=== PATIENT | female | born 1965 | race Caucasian/White ===

== ENCOUNTER → 2017-08-01 | Outpatient (CLI) | payer OTHER | END | disposition home or self-care (01) | LOC: US 12:28 | DX: C50.911 Malignant neoplasm of unspecified site of right female breast (principal); C77.3 Secondary and unspecified malignant neoplasm of axilla and upper limb lymph nodes | CPT/HCPCS: 19081; 19083; 19085; 38505; 76942; 77065; 88305; 88361; C1713 ==

== ENCOUNTER → 2017-08-22 | Day surgery (SDC) | payer OTHER ==
[~2017-08-22] MED LIST: DEXAMETHASONE SOD PHOS 20 MG/5 ML VIAL.; FAMOTIDINE 20 MG/2 ML VIAL; LIDOCAINE 1% 20 ML VIAL.; LIDOCAINE 1% PF 2 ML VIAL. ID; LIDOCAINE 2% PF Vial for OR 5 ML VIAL.; METOCLOPRAMIDE HCL 10 MG/2 ML VIAL.; MIDAZOLAM HCL/PF 2 MG/2 ML VIAL.; ONDANSETRON PF 4 MG/2 ML VIAL.; ONDANSETRON PF 4 MG/2 ML VIAL. IV; PROPOFOL 20 ML IV; PROTAMINE 50 MG/5 ML VIAL. IV; SCOPOLAMINE 1.5MG PATCH. TD; SEVOFLURANE 31 TO 60 MINUTES. IH; ceFAZolin 2GM PREMIX 2 GM/50 ML BAG IV; fentaNYL PF VIAL 100 MCG/2 ML VIAL; fentaNYL PF VIAL 100 MCG/2 ML VIAL IV
[2017-08-22] MEDS: IV RINGERS,LACTATED 1000ML 1,000 ML IV (11:27)
[2017-08-22] MEDS: SCOPOLAMINE 1.5MG PATCH. TD (11:51)
[2017-08-22] MEDS: HEPARIN SODIUM 5,000 UNIT in IV NORMAL SALINE 500ML BAG 500 ML IRR ×2 (12:40→13:11)
[2017-08-22] MEDS: fentaNYL PF VIAL 100 MCG/2 ML VIAL IV ×3 (14:12→14:34)
[2017-08-22] MEDS: PROCHLORPERAZINE 10 MG/2 ML VIAL. IV (14:43)
[2017-08-22] MEDS: HYDROcodone/APAP 5/325MG 1 TAB TABLET PO (15:02)
== END | disposition home or self-care (01) ==
LOC: SURG 11:02
DX: Z45.2 Encounter for adjustment and management of vascular access device (principal); C50.919 Malignant neoplasm of unspecified site of unspecified female breast; F41.9 Anxiety disorder, unspecified; F32.9 Major depressive disorder, single episode, unspecified; E78.00 Pure hypercholesterolemia, unspecified; Z98.51 Tubal ligation status; Z98.890 Other specified postprocedural states; Z79.899 Other long term (current) drug therapy; F17.210 Nicotine dependence, cigarettes, uncomplicated; Z88.5 Allergy status to narcotic agent
CPT/HCPCS: 36556; 36561; 71045; 77001; A7015; C1788; J0690; J0780; J1100; J1644; J2250; J2405; J2704; J2765; J3010; J7040; J7120; S0028

== ENCOUNTER 2018-01-23 06:04 | Observation (INO) | payer OTHER ==
[2018-01-23] VITALS (10 sets, daily range): BP systolic 110–136; BP diastolic 54–84
[~2018-01-23] VITALS: Ht 160 cm; Wt 82.6 kg
[~2018-01-23 06:04] MED LIST changes: +AMIT10TA PO; -DEXAMETHASONE SOD PHOS 20 MG/5 ML VIAL.; -FAMOTIDINE 20 MG/2 ML VIAL; +ISOSULFAN BLUE 50 MG/5 ML VIAL. SQ ONE; -LIDOCAINE 1% 20 ML VIAL.; -LIDOCAINE 1% PF 2 ML VIAL. ID; -LIDOCAINE 2% PF Vial for OR 5 ML VIAL.; -METOCLOPRAMIDE HCL 10 MG/2 ML VIAL.; -MIDAZOLAM HCL/PF 2 MG/2 ML VIAL.; -ONDANSETRON PF 4 MG/2 ML VIAL.; -ONDANSETRON PF 4 MG/2 ML VIAL. IV; +PRAV20TA2 PO; -PROPOFOL 20 ML IV; -PROTAMINE 50 MG/5 ML VIAL. IV; -SCOPOLAMINE 1.5MG PATCH. TD; +SERT50TA PO; -SEVOFLURANE 31 TO 60 MINUTES. IH; -ceFAZolin 2GM PREMIX 2 GM/50 ML BAG IV; -fentaNYL PF VIAL 100 MCG/2 ML VIAL; -fentaNYL PF VIAL 100 MCG/2 ML VIAL IV
[2018-01-23] MEDS ORDERED: PROPOFOL 0 ML IV ONE (06:14)
[2018-01-23] MEDS ORDERED: SCOPOLAMINE 1.5MG PATCH. TD ONE (07:00)
[2018-01-23] MEDS ORDERED: ONDANSETRON PF 4 MG/2 ML VIAL. IV PRN ×2 (07:00→11:15)
[2018-01-23] MEDS ORDERED: fentaNYL PF VIAL 100 MCG/2 ML VIAL IV PRN (07:00)
[2018-01-23] MEDS ORDERED: IV RINGERS,LACTATED 1000ML 1,000 ML IV SCH (07:00)
[2018-01-23] MEDS ORDERED: LIDOCAINE 1% PF 2 ML VIAL. ID PRN (07:00)
[2018-01-23] MEDS ORDERED: PROCHLORPERAZINE 10 MG/2 ML VIAL. IV PRN (07:00)
[2018-01-23] MEDS ORDERED: SUCCINYLCHOLINE 200 MG/10 ML VIAL. ONE (07:07)
[2018-01-23] MEDS ORDERED: PROPOFOL 20 ML IV ONE (07:07)
[2018-01-23] MEDS ORDERED: fentaNYL PF VIAL 100 MCG/2 ML VIAL ONE ×3 (07:07→09:58)
[2018-01-23] MEDS ORDERED: ROCURONIUM 50 MG/5 ML VIAL. ONE (07:07)
[2018-01-23] MEDS ORDERED: PROPOFOL 100 ML IV ONE (07:46)
[2018-01-23] MEDS ORDERED: PROPOFOL 200 ML IV ONE (08:19)
[2018-01-23] MEDS ORDERED: PROPOFOL 50 ML IV ONE (08:30)
[2018-01-23] MEDS ORDERED: PHENYLEPHRINE in 0.9% NACL PF 1 MG/10 ML SYRINGE. IV ONE (08:30)
[2018-01-23] MEDS ORDERED: DEXAMETHASONE SOD PHOS 20 MG/5 ML VIAL. ONE (08:30)
[2018-01-23] MEDS ORDERED: ONDANSETRON PF 4 MG/2 ML VIAL. ONE ×2 (08:30→09:32)
[2018-01-23] MEDS ORDERED: FAMOTIDINE 20 MG/2 ML VIAL ONE (08:30)
[2018-01-23] MEDS ORDERED: diphenhydrAMINE 50 MG/ML VIAL ONE (08:30)
[2018-01-23] MEDS: POTASSIUM CL 20MEQ-0.45% NACL 1,000 ML IV SCH (11:12)
[2018-01-23] MEDS ORDERED: oxyCODONE/APAP 5/325 1 TAB TABLET PO PRN (11:15)
[2018-01-23] MEDS ORDERED: 0.9 % SODIUM CHLORIDE 10 ML DISP.SYRIN. IV PRN (11:15)
--- NOTE | 2018-01-23 11:25 | PDOC4 ---
Operative Note Operative Note Operative Note: Preoperative Diagnosis: Right breast cancer Postoperative Diagnosis: Same Procedure: Right modified radical mastectomy, left simple mastectomy Surgeon: Steven Leasing Director: Haylee GARCIA Anesthesia: Gen. EBL: 50 mL Specimen: Right breast, axillary contents, left breast to pathology Drains: 19 [place] SUZANNE drains to bilateral chest wall Complications: None Indication: The patient is a 52-year-old female who was previously diagnosed with locally advanced right breast cancer. She underwent neoadjuvant treatment with a dramatic clinical and radiographic response. She would like to proceed with a complete mastectomy and we will include a axillary dissection given the prior presence of buffy metastasis. In addition the patient had MRI abnormalities of the left breast. Biopsies of this were negative for cancer however the lesions dissipated with neoadjuvant chemotherapy as well. Given this finding and with discussion from her oncologist she would like to proceed with a left mastectomy as well. The risks of surgery were discussed with the patient which include bleeding, infection, scar tissue, pain, wound healing problems, skin necrosis, anesthetic risk, potential need for additional surgery or procedure. She understands and would like to proceed. Description: The patient was taken to the operating room and placed supine on the operating table. Gen. anesthesia was performed. The bilateral chest and axilla were prepped with ChloraPrep and draped in a standard surgical manner. We began by marking symmetric bilateral elliptical tracings extending medial to lateral across both breasts. We then directed our attention to the right breast and a towel covered the left side. With a scalpel an incision was made at the prior elliptical marking. The skin flaps were then developed starting with the superior flap initially. The skin was from the breast parenchyma using cautery. The dissection was carried superiorly to just below the level of the clavicle. Inferiorly the flap was developed in a similar manner to the upper torso which included the inframammary fold. In medial to lateral fashion the breast was then taken off of the chest wall. Several blood vessels that were encountered were controlled with cautery. A few larger vessels were ligated with 2-0 Vicryl. A stitch efe the 12 o'clock position of the right breast and it was sent to pathology. We then began the axillary dissection. The borders of the dissection included the axillary vein superiorly, the pectoralis medially and the latissimus laterally. In a superior to inferior fashion the lymphatic and adipose tissue was mobilized from the surrounding structures. Both the thoracodorsal and long thoracic nerves were identified and preserved. The axillary contents were then fully excised and sent to pathology. Hemostasis was good and a 19 [place] round Sourav drain was left in the chest wall which exited inferiorly. The drain was secured to the skin with 2-0 silk. The subcutaneous tissue was approximated with interrupted 3-0 Vicryl and the skin was closed with a 4-0 Monocryl suture. The incision was covered with a sterile towel. Gloves and instruments were appropriately changed. We then directed our attention to the left side. In a similar manner an elliptical incision was made at the site of the prior tracing. Both the superior and inferior flaps were developed similar to before. The entire breast was removed in a medial to lateral fashion. A silk stitch efe the 12:00 location of the breast and was sent to pathology. Several small bleeding spots were readily controlled with cautery and hemostasis was good. The Port-A-Cath was encountered and remained intact. No other abnormalities were identified. The subcutaneous tissue was closed with interrupted 3-0 Vicryl. The skin was approximated with a 4-0 running Monocryl suture. Sterile OpSite dressings were then applied bilaterally. The patient tolerated the procedure well and was sent to the recovery room in stable condition. At the end of the case all counts were correct. PACO CLINE MD Jan 23, 2018 11:25
[2018-01-23] MEDS: fentaNYL PF VIAL 100 MCG/2 ML VIAL IV PRN ×2 (12:01→12:33)
[2018-01-23] MEDS: oxyCODONE/APAP 5/325 1 TAB TABLET PO PRN ×2 (13:50→18:48)
[2018-01-23] MEDS ORDERED: ATORVASTATIN CALCIUM 10 MG TABLET. PO SCH (21:00)
[2018-01-23] MEDS ORDERED: AMITRIPTYLINE HCL 10 MG TABLET. PO SCH (21:00)
[2018-01-24] MEDS: POTASSIUM CL 20MEQ-0.45% NACL 1,000 ML IV SCH ×2 (00:32→13:52)
[2018-01-24] MEDS: oxyCODONE/APAP 5/325 1 TAB TABLET PO PRN (02:45)
[2018-01-24 03:00] VITALS: BP 115/57
[2018-01-24 07:00] VITALS: BP 103/45
[2018-01-24] MEDS ORDERED: SERTRALINE 50 MG TABLET. PO SCH (09:00)
[2018-01-24] MEDS ORDERED: diphenhydrAMINE HCL 25 MG CAPSULE PO PRN (09:45)
[2018-01-24] MEDS ORDERED: HYDROcodone/APAP 5/325MG 1 TAB TABLET PO PRN ×2 (09:45)
[2018-01-24 11:00] VITALS: BP 121/65
[2018-01-24] MEDS ORDERED: HYDR-2758 PO (14:02)
--- NOTE | 2018-01-24 14:38 | DISCH ---
DISCHARGE INSTRUCTIONS Condition on Discharge Condition on Discharge: Stable Activity After Discharge Activity Instructions for Disc: Activity as tolerated Other activity instructions: keep dressing in place and dry Lifting Instructions after Dis: No heavy lifting Diet after Discharge Diet after Discharge: Regular Wound Incision Care Other wound/incision instructi: drain care as instructed Contacting the DRFermin after DC Call your doctor for: Concerns you may have Follow-Up Follow up with: Follow up with Dr Harris 1 week, call to schedule [phone] JAMAL RAYA APRN Jan 24, 2018 14:38
--- NOTE | 2018-01-24 14:42 | PDOC ---
SURGICAL PROGRESS NOTE Subjective feeling well some flushing of upper chest, checks--has happened before with meds/chemo no rash understands drain care Vital Signs Vital Signs Date Time Temp Pulse Resp B/P (MAP) Pulse Ox O2 Delivery O2 Flow Rate FiO2 01/24/18 12:10 17 97 Room Air 01/24/18 11:00 98.4 85 121/65 (83) 98.4 01/23/18 15:00 2.0 I&O Intake and Output 01/24/18 07:00 Intake Total 1760 ml Output Total 535 ml Balance 1225 ml Intake Oral 10 ml IV Total 1750 ml Output Urine Total 275 ml Drainage Total 170 ml Estimated Blood Loss 90 ml # Voids 9 General: Alert, Oriented X3, Cooperative, No acute distress Skin: Other (dressings dry, no significant erythema, ecchymosis, drains serosang) Assessment/Plan s/p patricia mastectomy home with drains, leave dressings in place FU 1 week JAMAL RAYA APRN Jan 24, 2018 14:42
--- NOTE | 2018-01-30 09:58 | PATHOLOGY ---
[facility] Accession Number: [id number] . 01 Material submitted: . PART A: RIGHT BREAST PART B: RIGHT AXILLARY TISSUE PART C: LEFT BREAST . 01 Clinical history: . Breast cancer . 02 Diagnosis: A. Breast, right modified radical mastectomy: - No residual invasive high grade ductal carcinoma or high grade ductal carcinoma in situ identified. - Deep margin of resection negative for tumor. - Proliferative fibrocystic changes, with the following components: - Moderate / florid ductal epithelial hyperplasia, focal. - Stromal fibrosis. - Duct ectasia. - Duct stasis. - Cystic change. - Sclerosing adenosis, focal. - Small hemangioma of breast. . B. Lymph nodes and adipose tissue, right axillary tissue: - 17 lymph nodes negative for tumor and showing focal buffy fibrosis (0/17). . C. Breast, left simple mastectomy: - No evidence of malignancy. - Proliferative fibrocystic changes with the following components: - Moderate/florid ductal epithelial hyperplasia, focal. - Stromal fibrosis. - Duct ectasia. - Duct stasis, focal. - Cystic change. - Apocrine metaplasia, focal. - Sclerosing adenosis, focal. . (JPM:mml; 01/29/18) [facility]/01/30/2018 . 02 Comment: Sections of the right modified radical mastectomy show no evidence of residual invasive high grade ductal carcinoma or high grade ductal carcinoma in situ. The right axillary lymph node dissection reveals 17 lymph nodes, all of which are negative for tumor. Sections of the left simple mastectomy show no evidence of malignancy. (JPM:mml; 01/29/18) . 02 Electronically signed: . Nasir Fontaine MD, Pathologist NPI- [id number] . 01 Gross description: . A. The specimen is received in formalin, labeled "Nguyen Hoang right breast stitch 12:00" and consists of a 1362 gram mastectomy specimen consisting of breast tissue (22.0 cm L-M, 19.7 cm S-I, and 5.0 cm A-P) with an anterior skin ellipse (21.9 x 10.1 cm). The skin displays an everted nipple (1.5 x 1.4 cm) with areolar up to 4.4 cm and no lesions. A suture is present designating 12:00. The specimen is inked as follows: Superior-blue, inferior-green, and posterior-black. It is sectioned from lateral to medial revealing no distinct masses or previous biopsy sites. There is an area of dense fibrous tissue at the approximate 9 o'clock position 3 cm from nipple that measures 4.0 x 3.0 cm. This area extends 5.0 cm from posterior, 5.5 cm from inferior, and 7.5 cm from superior. The remainder of the parenchyma consists of yellow-orange adipose tissue with approximately 10% dense fibrous tissue. The specimen was obtained at 9:03 AM on 01/23/18 and placed in formalin at 9:06 AM. The cold ischemic time is 3 minutes and the total formalin fixation time is greater than 6 hours but less than 72 hours. Slip Bridge Operator sections are submitted as follows: . A1: Nipple A2-A11: Entire 9:00 area 3 cmFN A12: Deep margin of 9:00 area A13-A14: UOQ approximately 10:00 A15: UOQ additional A16: LOQ A17: UIQ A18: LIQ A19: Deep to nipple . B. The specimen is received in formalin, labeled "Nguyen Hoang, right axillary tissue" and consists of a 90 g segment of yellow adipose tissue measuring 9.0 x 8.5 x 2.6 cm. Sectioning and palpation reveal multiple lymph node candidates ranging from 0.3 cm to 2.6 cm. The lymph node candidates are entirely submitted as follows: . B1: Intact lymph node candidates B2: Two bisected lymph node candidates one inked blue B3-B4: Largest lymph node candidate, bisected B5-B6: One lymph node candidate, serially sectioned B7: One lymph node candidate, trisected B8-B9: One lymph node candidate, serially sectioned B10: One lymph node candidate, trisected B11: 2 bisected lymph node candidates, one inked blue B12: 2 bisected lymph node candidates, one inked blue B13: One lymph node candidate, trisected . C. The specimen is received in formalin, labeled "Nguyen Hoang, left breast stitch 12:00" and consists of a 1442 g simple mastectomy specimen consisting of breast tissue measuring 23.0 cm L-M, 20.2 cm S-I, and 5.5 cm A-P with an anterior skin ellipse (20.0 x 12.3 cm). The skin displays an everted nipple (1.6 x 1.5 cm) and areolar up to 3.4 cm with no lesions. A suture is present designating 12:00 and the specimen is inked as follows: Superior-blue, inferior-green, and posterior-black. It is sectioned lateral to medial revealing no masses or lesions. The parenchyma consists of yellow-orange adipose tissue with approximately 10-15% dense fibrous tissue. The specimen was obtained at 10:28 AM on 01/23/18 and placed in formalin at 10:30 AM. The cold ischemic time is 2 minutes and the total formalin fixation time is greater than 6 hours but less than 72 hours. Slip Bridge Operator sections are submitted as follows: . C1: Nipple C2: Deep to nipple C3-C4: UIQ C5-C6: LIQ C7-C8: UOQ C9-C10: LOQ C11: Deep margin (SDY; 01/24/2018) SYU/SYU . 02 Pathologist provided ICD-10: C50.911, N60.11, N62, N60.41, N60.12, N60.42, N60.22 . 02 CPT . 598110, [id number] Specimen Comment: A courtesy copy of this report has been sent to Specimen Comment: [phone], . Specimen Comment: Report sent to and Specimen Comment: A duplicate report has been generated due to demographic updates. Performed at: 01 [facility] [address], [place] [id number] MD Paco Curtis MD Phone: [phone] Performed at: 02 [facility] [address] [place], [place] [id number] MD Naisr Fontaine MD Phone: [phone]
== END 2018-01-24 16:20 | disposition home or self-care (01) ==
LOC: SURG 06:04 → 4 NORTH 11:12
PROVIDERS: ADMIT Surgery; ATTEND Surgery
DX: C50.911 Malignant neoplasm of unspecified site of right female breast (principal); Z85.3 Personal history of malignant neoplasm of breast
CPT/HCPCS: 19303; 19307; A7015; G0378; G0379; J0330; J0690; J0780; J1100; J1200; J2370; J2405; J2704; J3010; J7120; Q0163; S0028; 88307; 88309; Q9968

== ENCOUNTER → 2018-11-06 | Day surgery (SDC) | payer OTHER ==
[~2018-11-06] MED LIST changes: +ANAS1TAB PO; +GABA600T7 PO; +HYDR-2761 PO; -ISOSULFAN BLUE 50 MG/5 ML VIAL. SQ ONE; +IV RINGERS,LACTATED 1000ML 1,000 ML IV SCH; +LIDOCAINE 1% PF 2 ML VIAL. ID PRN; +ONDANSETRON PF 4 MG/2 ML VIAL. IV PRN; +PROCHLORPERAZINE 10 MG/2 ML VIAL. IV PRN; +PROPOFOL 20 ML IV ONE; +fentaNYL PF VIAL 100 MCG/2 ML VIAL IV PRN
[2018-11-06 08:00] VITALS: BP 114/70
== END ==
LOC: ENDOS 06:14
PROVIDERS: ATTEND Internal Medicine Gastroenterology
DX: Z12.11 Encounter for screening for malignant neoplasm of colon (principal); K57.30 Diverticulosis of large intestine without perforation or abscess without bleeding; K64.0 First degree hemorrhoids; F41.9 Anxiety disorder, unspecified; F15.90 Other stimulant use, unspecified, uncomplicated; E78.00 Pure hypercholesterolemia, unspecified; Z72.89 Other problems related to lifestyle; Z88.6 Allergy status to analgesic agent; Z90.710 Acquired absence of both cervix and uterus; Z85.3 Personal history of malignant neoplasm of breast; Z98.890 Other specified postprocedural states
CPT/HCPCS: 45378; J2704

== ENCOUNTER → 2019-04-18 | Outpatient (CLI) | payer OTHER ==
[2018-11-06 08:00] VITALS: BP 114/70
[~2019-04-18] MED LIST changes: -IV RINGERS,LACTATED 1000ML 1,000 ML IV SCH; -LIDOCAINE 1% PF 2 ML VIAL. ID PRN; -ONDANSETRON PF 4 MG/2 ML VIAL. IV PRN; -PROCHLORPERAZINE 10 MG/2 ML VIAL. IV PRN; -PROPOFOL 20 ML IV ONE; -fentaNYL PF VIAL 100 MCG/2 ML VIAL IV PRN
--- NOTE | 2019-04-18 10:17 | RAD ---
Ultrasound of the chest without comparison for postop radical mastectomy, bilateral nodules at reconstruction. Technique and findings: Real-time grayscale and color Doppler evaluation of the area of interest involving the anterior chest wall was performed. FINDINGS: Imaging about the medial aspect of the left reconstruction scar demonstrates no soft tissue nodules, adenopathy, or fluid collections. Imaging about the medial aspect of the reconstruction scar on the right does reveal a few soft tissue nodule which appear well circumscribed, with a fatty hilum, and imaging appearance most suggestive of lymph nodes. The largest of these is seen medially and measures 0.9 x 0.3 x 0.5 cm. No abscesses or phlegmonous collections are identified. There is normal color flow throughout the soft tissues. IMPRESSION: 1. There are few small nodules along the medial margin of the right reconstruction scar with sonographic appearance most suggestive of benign lymphadenopathy. No postsurgical fluid collections. 2. No abnormalities around the interrogated areas of the left reconstruction scar. Electronically signed by: Prasanna Lai MD (04/18/2019 10:14 AM) [facility]
--- NOTE | 2019-04-18 14:59 | RAD ---
SONOGRAPHY OF THE CHEST WALL-BILATERAL EXAM Clinical indications: History of bilateral mastectomies for breast cancer. History of TRAM flap. History of bilateral palpable lumps. Right chest wall: High-resolution sonography of the hard palpable lump of the medial aspect of the right chest wall was performed. There is an ill-defined area of hypoechoic tissue measuring 9 mm in greatest dimension. However, no discrete solid nodule is seen. No cyst or fluid collection is evident. Left chest wall: High-resolution sonography of the palpable lump of the medial aspect of the left chest wall was performed. No focal sonographic abnormality is evident. IMPRESSION: There is a definite discrete hard firm palpable mass in the medial aspect of the right chest wall. This may be biopsied percutaneously just by palpation without ultrasound guidance. Ultrasound demonstrates only an ill- defined hypoechoic area. In addition, bilateral diagnostic mammography of the TRAM flap and chest wall may be performed as well to evaluate for any calcifications. Note-I discussed these findings with Dr. David Schmitz at 11:20 AM on April 18, 2019. The patient will be scheduled for bilateral diagnostic mammogram. The patient stated that she is scheduled to see her surgeon in early April 2019. BI-RADS Category 0: Incomplete: Need additional imaging evaluation. The patient information was entered into the data reminder system with a target due date for the next mammogram of now. [facility]STO
== END | disposition home or self-care (01) ==
LOC: US 09:15
PROVIDERS: ATTEND Internal Medicine Hematology & Oncology
DX: R22.2 Localized swelling, mass and lump, trunk (principal); Z17.1 Estrogen receptor negative status [ER-]
CPT/HCPCS: 76604